=== PATIENT | male | born 1970 | race Two or more races ===

== ENCOUNTER 2019-11-16 06:18 | Emergency (ER) | payer OTHER ==
[~2019-11-16] VITALS: Ht 165.1 cm; Wt 61.2 kg
[2019-11-16] MEDS ORDERED: CIPRODEX OTIC7.5 ML OT (16:08)
[2019-11-16] MEDS ORDERED: AMOX-CLAV 875-1 EACH PO (16:08)
[2019-11-16] MEDS ORDERED: INTESTINEX680 M1 PO (16:08)
== END 2019-11-16 17:50 ==
LOC: ER 06:18
DX: H66.93 Otitis media, unspecified, bilateral (principal); E86.0 Dehydration; R55 Syncope and collapse; Z20.828 Contact with and (suspected) exposure to other viral communicable diseases

== ENCOUNTER 2019-11-29 06:56 | Emergency (ER) | payer OTHER ==
[~2019-11-29] VITALS: Ht 165.1 cm; Wt 67.1 kg
[~2019-11-29 06:56] MED LIST: AMOX-CLAV 875-1 EACH PO; CIPRODEX OTIC7.5 ML OT; INTESTINEX680 M1 PO
[2019-11-29] MEDS ORDERED: LEVSIN/SL0.125 MG SL (13:49)
[2019-11-29] MEDS ORDERED: PEPCID AC20 MG PO (13:49)
[2019-11-29] MEDS ORDERED: INTESTINEX680 M1 PO (13:49)
[2019-11-29] MEDS ORDERED: FLAGYL500MG PO (13:49)
== END 2019-11-29 14:27 | disposition home or self-care (01) ==
LOC: ER 06:56
DX: R19.7 Diarrhea, unspecified (principal); Z03.818 Encounter for observation for suspected exposure to other biological agents ruled out

== ENCOUNTER 2022-05-30 08:18 | Emergency (ER) | payer OTHER ==
[~2022-05-30] VITALS: Ht 165.1 cm; Wt 67.1 kg
[~2022-05-30 08:18] MED LIST changes: +FLAGYL500MG PO; +LEVSIN/SL0.125 MG SL; +PEPCID AC20 MG PO
== END 2022-05-30 11:05 | disposition home or self-care (01) ==
LOC: ER 08:18
DX: B34.8 Other viral infections of unspecified site (principal); Z20.822 Contact with and (suspected) exposure to COVID-19

== ENCOUNTER 2023-01-29 04:17 | Emergency (ER) | payer OTHER ==
[~2023-01-29] VITALS: Ht 165.1 cm; Wt 65.8 kg
[2023-01-29 06:39] LABS: HEMATOCRIT 40.4 % (39.0-48.0); HEMOGLOBIN 13.5 g/dL (13-16.00); MEAN CELL VOLUME 88.2 fL (80.0-100.00); MEAN CORPUSCULAR HEMOGLOBIN 29.4 pg (27.00-32.0); MEAN CORPUSCULAR HGB CONC 33.4 g/dl (32.0-36.0); PLATELET COUNT 249 K/uL (150-450); RED BLOOD COUNT 4.58 M/uL (4.00-6.00); RED CELL DISTRIBUTION WIDTH 13.5 % (11.5-14.5)
[2023-01-29 07:09] LABS: INR 0.99; PARTIAL THROMBOPLASTIN TIME 25.4 SECONDS (22.0-34.0); PROTHROMBIN TIME 10.4 SECONDS (9.0-11.5)
[2023-01-29 07:41] LABS: ALBUMIN 4.1 gm/dL (3.4-5.0); BILIRUBIN TOTAL 0.57 mg/dL (0.3-1.2); CALCIUM 9.2 mg/dL (8.5-10.1); CREATININE SERUM 1.13 mg/dL (0.70-1.30); GFR 68.14; GLOBULINA 4.2 G/DL (2.4-3.5); POTASSIUM 3.7 mEq/L (3.5-5.1); TOTAL PROTEIN 8.3 gm/dL (6.4-8.2)
[2023-01-29 07:48] LABS: PH,URINE 5.5 (5.0-8.0); URINE APPEARANCE Clear; URINE BILIRRUBIN Negative (NEGATIVE); URINE BLOOD Large; URINE COLOR Yellow; URINE GLUCOSE Negative (NEGATIVE); URINE LEUKOCYTE Negative; URINE NITRATE Negative; URINE PROTEIN Trace (NEGATIVE); URINE UROBILINOGEN 0.2 E.U./dl
[2023-01-29 07:49] LABS: URINE BACTERIA 8.8 uL (0.0-1933); URINE EPITHELIAL CELLS 3.2 uL (0.0-38.8); URINE RBC 1057.8 uL (0.0-20.8); URINE WBC 9.8 uL (0.0-23.2)
== END 2023-01-29 14:27 | disposition home or self-care (01) ==
LOC: ER 04:17
PROVIDERS: General Practice
DX: R55 Syncope and collapse (principal); R10.9 Unspecified abdominal pain